=== PATIENT | female | born 1965 | race Caucasian/White ===

== ENCOUNTER 2018-01-09 08:24 | Day surgery (SDC) | payer OTHER ==
--- NOTE | 2018-01-09 07:42 | HP ---
DATE OF SURGERY: 01/09/2018 HISTORY OF PRESENT ILLNESS: The patient is a 52 year-old with some back issues, some sacroiilitis, occasional rectal pain. The patient has regular back issues. She had some mucus stools in the past. The last colonoscopy at age 31 negative according to the patient. She denies any current bloody stools. Family history negative for colon cancer. She is in need of screening colonoscopy. PAST MEDICAL HISTORY: Hypercholesterolemia and had some back problems. PAST SURGICAL HISTORY: Cholecystectomy, several back surgeries, section. She had T&A in the past. MEDICATIONS: Estradiol, bupropion, Crestor, trazodone, gabapentin. ALLERGIES: NKDA. FAMILY HISTORY: Hypertension. SOCIAL HISTORY: No smoking, rare alcohol use. REVIEW OF SYSTEMS: Twelve systems reviewed per admission assessment. No chest pain or palpitations other systems negative or noncontributory as above and per preadmission questionnaire. PHYSICAL EXAMINATION: GENERAL: No acute distress. HEENT: Sclerae nonicteric. NECK: No JVD. CHEST: Equal excursion, nonlabored breathing. CVS: Regular rate and rhythm. ABDOMEN: Soft. No peritoneal signs. EXTREMITIES: No significant edema. NEURO: Alert, moving extremities symmetrically. No gross motor deficits noted. IMPRESSION: Need for screening colonoscopy. I feel she is a candidate. She is shown the risk sheet and explained the procedure in detail but not limited to bleeding or infection, small risk of bowel injury or perforation possibly requiring open procedure, small risk of missed or nondiagnosis or incomplete exam possibly requiring barium enema, other studies or procedures. She understands and agrees to the planned procedure and will proceed with outpatient colonoscopy.
[2018-01-09] MEDS ORDERED: Versed 2 MG/2 ML Injection IV ONE (08:25)
[2018-01-09] MEDS ORDERED: DIPRIVAN 200 MG/20 ML IV ONE (08:25)
[2018-01-09] MEDS ORDERED: Lactated Ringers 1,000 ML IV ONE (09:17)
[2018-01-09] MEDS ORDERED: Lactated Ringers 1,000 ML IV SCH (09:30)
[2018-01-09 11:56] VITALS: BP 120/74; PULSE 89; O2SAT 98
--- NOTE | 2018-01-09 14:58 | OP ---
SURGERY DATE/TIME: 01/09/2018 1005 PREOPERATIVE DIAGNOSES: 1) Need for screening colonoscopy. 2) Rectal aches and pains. POSTOPERATIVE DIAGNOSES: 1) Poor prep limiting exam. 2) Small raised lesion versus hyperplastic lesion sigmoid colon and rectum. 3) Small internal and external hemorrhoids. 4) A few small diverticula. PROCEDURES: 1) Colonoscopy to cecum with hot biopsy small raised lesion sigmoid colon and rectum versus hyperplastic lesion, path pending. 2) Random cold biopsies colon to evaluate for microscopic colitis. SURGEON: Dr. Dameon Becerra. ANESTHESIA: MAC. ESTIMATED BLOOD LOSS: Minimal. INDICATIONS: As noted above. Risks and benefits explained in detail but not limited to and consent obtained. DESCRIPTION OF PROCEDURE AND FINDINGS: The patient is taken to the endoscopy room. MAC anesthesia introduced. After official time out and no disagreement with planned procedure, digital rectal exam did not reveal any rectal masses. She did have some internal and external hemorrhoids. Video colonoscope inserted and passed up through the poorly prepped colon with a lot of liquidy semi-solid and a few solid stool throughout the colon, was suction irrigated as well as possible but did limit the exam for small lesions. The scope was slowly and carefully able to be navigated across the transverse colon, ascending colon. With external pressure the scope was able to be passed to the cecum. Appendiceal orifice and valve well visualized. Again prep overall was poor limiting the exam. Suction irrigated as well as possible but did limit the exam for small lesions. The scope was slowly and carefully withdrawn. There were no signs of any large polyps, masses or obstructing lesions. As she had rectal pain and it is unclear whether it is more sacroiliac inflammation or other etiology, it was felt she warranted random cold biopsy to evaluate for microscopic colitis and cold biopsies were taken. Good hemostasis was noted. The scope was slowly and carefully withdrawn. She had a few small diverticula in the left colon otherwise had some small internal and external hemorrhoids otherwise no signs of any large polyps, masses or obstructing lesions. There were a few small 1.5 mm to 2 mm raised lesions versus hyperplastic lesions in the sigmoid colon and rectum that were removed with hot biopsy forceps with brief bursts of cautery. Good hemostasis noted. The scope is withdrawn. The patient tolerated the procedure well. There were no immediate complications. Findings discussed with the family out in the waiting room. Will see her back in the office next week.
== END 2018-01-09 11:40 | disposition home or self-care (01) ==
LOC: SDC 08:24
PROVIDERS: ATTEND Surgery
PROC: 0DBH8ZX Excision of Cecum, Via Natural or Artificial Opening Endoscopic, Diagnostic (ICD-10-PCS; principal; 2018-01-09)
PROC: 0DBN8ZX Excision of Sigmoid Colon, Via Natural or Artificial Opening Endoscopic, Diagnostic (ICD-10-PCS; 2018-01-09)
PROC: 0DBP8ZX Excision of Rectum, Via Natural or Artificial Opening Endoscopic, Diagnostic (ICD-10-PCS; 2018-01-09)
PROC: 0DBG8ZX Excision of Left Large Intestine, Via Natural or Artificial Opening Endoscopic, Diagnostic (ICD-10-PCS; 2018-01-09)
PROC: 0DBP8ZX Excision of Rectum, Via Natural or Artificial Opening Endoscopic, Diagnostic (ICD-10-PCS; 2018-01-09)
PROC: 0DBF8ZX Excision of Right Large Intestine, Via Natural or Artificial Opening Endoscopic, Diagnostic (ICD-10-PCS; 2018-01-09)
DX: Z12.11 Encounter for screening for malignant neoplasm of colon (principal); K62.89 Other specified diseases of anus and rectum; K63.9 Disease of intestine, unspecified; K64.4 Residual hemorrhoidal skin tags; K64.8 Other hemorrhoids; K57.90 Diverticulosis of intestine, part unspecified, without perforation or abscess without bleeding; Z80.0 Family history of malignant neoplasm of digestive organs; E78.00 Pure hypercholesterolemia, unspecified
CPT/HCPCS: 00812; 88305; J2250; J2704

== ENCOUNTER 2018-11-15 10:58 | Day surgery (SDC) | payer OTHER ==
[2018-11-15] MEDS ORDERED: Marcaine 0.5% SDV 10 ML IJ ONE (10:59)
[2018-11-15] MEDS ORDERED: DIPRIVAN 200 MG/20 ML IV ONE (10:59)
--- NOTE | 2018-11-15 13:36 | XRAY ---
9 seconds fluoroscopy time in surgery for ganglion block sacrum.
--- NOTE | 2018-11-15 13:47 | XRAY ---
Indication: Sacral ganglion block. Intraoperative fluoroscopy was provided for 9 seconds. Single digital spot image submitted for interpretation demonstrates a posterior needle tip at the level of the coccyx. Small amount of contrast injected for needle tip placement. Correlate with intraoperative findings/report.
[2018-11-15] MEDS ORDERED: Lactated Ringers 1,000 ML IV ONE (14:52)
== END 2018-11-15 13:00 | disposition home or self-care (01) ==
LOC: SDC-PAIN 10:58
PROVIDERS: ATTEND Psychiatry & Neurology Pain Medicine
DX: R10.2 Pelvic and perineal pain (principal); M53.3 Sacrococcygeal disorders, not elsewhere classified
CPT/HCPCS: 64520; 72020; 77002; J2704; Q9966

== ENCOUNTER 2019-02-14 11:04 | Day surgery (SDC) | payer OTHER ==
[2019-02-14] MEDS ORDERED: LIDOCAINE HCL 2% 100 MG/5 ML IJ ONE (11:05)
[2019-02-14] MEDS ORDERED: Marcaine 0.5% SDV 10 ML IJ ONE (11:05)
[2019-02-14] MEDS ORDERED: Ketamine HCl 50 MG/ML IJ ONE (11:05)
[2019-02-14] MEDS ORDERED: DIPRIVAN 200 MG/20 ML IV ONE (11:05)
[2019-02-14] MEDS ORDERED: Pepcid 20 MG VIAL IV SCH (12:15)
[2019-02-14] MEDS ORDERED: MORPHINE SULFATE 10 MG/ML ONE (12:58)
[2019-02-14] MEDS ORDERED: MORPHINE SULFATE 10 MG/ML IV ONE (14:00)
[2019-02-14] MEDS ORDERED: Lactated Ringers 1,000 ML IV ONE (14:25)
--- NOTE | 2019-02-14 16:17 | XRAY ---
14 seconds of fluoroscopy was used in surgery for ganglion impar.
--- NOTE | 2019-02-14 16:24 | XRAY ---
Indication: Ganglion IMPAR5. Intraoperative fluoroscopy was provided for 14 seconds. Single digital spot image submitted for interpretation demonstrates posterior needle tip projecting just anterior to the sacrococcygeal junction. Small amount of contrast injected for needle tip placement. Correlate with intraoperative findings/report.
== END 2019-02-14 13:12 | disposition home or self-care (01) ==
LOC: SDC-PAIN 11:04
PROVIDERS: ATTEND Psychiatry & Neurology Pain Medicine
DX: M53.3 Sacrococcygeal disorders, not elsewhere classified (principal); Z79.899 Other long term (current) drug therapy
CPT/HCPCS: 64999; 72220; 77002; J2270; J2704; Q9966

== ENCOUNTER 2019-06-27 09:54 | Day surgery (SDC) | payer OTHER ==
[2019-06-27] MEDS ORDERED: Marcaine 0.5% SDV 10 ML IJ ONE (09:55)
[2019-06-27] MEDS ORDERED: DIPRIVAN 200 MG/20 ML IV ONE (11:11)
[2019-06-27] MEDS ORDERED: Ketamine HCl 50 MG/ML ONE (11:11)
[2019-06-27] MEDS ORDERED: Lactated Ringers 1,000 ML IV ONE (11:16)
--- NOTE | 2019-06-27 15:17 | XRAY ---
15 seconds fluoroscopy time in surgery for ganglion impar nerve block.
--- NOTE | 2019-06-29 10:18 | XRAY ---
Indication: Sacral ganglion nerve block. Intraoperative fluoroscopy was provided for 15 seconds. Single digital spot image submitted for interpretation demonstrates posterior needle tip at the level of the coccyx. Small amount of contrast injected for needle tip placement. Correlate with intraoperative findings/report.
== END 2019-06-27 11:45 | disposition home or self-care (01) ==
LOC: SDC-PAIN 09:54
PROVIDERS: ATTEND Psychiatry & Neurology Pain Medicine
DX: M53.3 Sacrococcygeal disorders, not elsewhere classified (principal); F41.8 Other specified anxiety disorders; Z79.899 Other long term (current) drug therapy
CPT/HCPCS: 64999; 72020; 77002; J2704; Q9966

== ENCOUNTER 2021-05-06 13:19 | Day surgery (SDC) | payer BC ==
[2021-05-06] MEDS ORDERED: BUPIVACAINE 0.5% VIAL IJ ONE (13:20)
[2021-05-06] MEDS ORDERED: Xylocaine 1% Vial 30 ML PF IJ ONE (13:20)
[2021-05-06] MEDS ORDERED: DIPRIVAN 200 MG/20 ML IV ONE (15:10)
[2021-05-06] MEDS ORDERED: Lactated Ringers 1,000 ML IV ONE (15:42)
--- NOTE | 2021-05-06 17:00 | XRAY ---
Indication: Ganglion impar. Intraoperative fluoroscopy provided for 16 seconds. Single lateral digital spot image submitted for interpretation demonstrates posterior needle tip projecting just anterior to coccyx. Small amount of contrast injected for needle tip placement. Correlate with intraoperative findings/report.
--- NOTE | 2021-05-06 17:02 | XRAY ---
16 seconds fluoroscopy time in surgery for ganglion impar.
== END 2021-05-06 15:33 | disposition home or self-care (01) ==
LOC: SDC-PAIN 13:19
PROVIDERS: ATTEND Psychiatry & Neurology Pain Medicine
DX: M54.16 Radiculopathy, lumbar region (principal); F41.9 Anxiety disorder, unspecified; F32.9 Major depressive disorder, single episode, unspecified; M19.90 Unspecified osteoarthritis, unspecified site; Z79.899 Other long term (current) drug therapy
CPT/HCPCS: 64520; 72020; 77002; 77003; J2001; J2704; Q9966

== ENCOUNTER 2021-08-12 06:42 | Day surgery (SDC) | payer BC ==
[2021-08-12] MEDS ORDERED: Depo-Medrol 40 MG/ML IM ONE (06:43)
[2021-08-12] MEDS ORDERED: Sodium Chloride 0.9(Preservative Free) 10 ML IJ ONE (06:43)
[2021-08-12] MEDS ORDERED: DIPRIVAN 200 MG/20 ML IV ONE (08:51)
[2021-08-12] MEDS ORDERED: Lactated Ringers 1,000 ML IV ONE (09:01)
--- NOTE | 2021-08-12 12:08 | XRAY ---
Indication: Left L3-L5 transforaminal TELLY. Intraoperative fluoroscopy provided for 54 seconds. 2 digital spot images submitted for interpretation demonstrates posterior needle tips projecting over the expected left L4 and L5 nerve roots. Small amount of contrast injected for needle tip placement. Correlate with intraoperative findings/report. Incidental incompletely visualized bilateral L5-S1 fusion hardware.
--- NOTE | 2021-08-12 12:43 | XRAY ---
54 seconds fluoroscopy time in surgery for L3-L5 TELLY.
== END 2021-08-12 09:25 | disposition home or self-care (01) ==
LOC: SDC-PAIN 06:42
PROVIDERS: ATTEND Psychiatry & Neurology Pain Medicine
DX: M54.16 Radiculopathy, lumbar region (principal); Z79.899 Other long term (current) drug therapy
CPT/HCPCS: 64483; 64484; 72100; 77003; J1030; J2704; Q9966

== ENCOUNTER 2021-11-10 05:58 | Day surgery (SDC) | payer BC ==
[2021-11-10] MEDS ORDERED: Lactated Ringers 1,000 ML IV SCH (06:30)
[2021-11-10] MEDS ORDERED: DIPRIVAN 200 MG/20 ML IV ONE ×2 (07:52→08:08)
[2021-11-10] MEDS ORDERED: Versed 2 MG/2 ML Injection ONE (07:53)
[2021-11-10 08:56] VITALS: O2SAT 96
--- NOTE | 2021-11-10 09:52 | OP ---
SURGERY DATE/TIME: 11/10/2021 0758 PREOPERATIVE DIAGNOSES: 1) Epigastric pain. 2) History of colon polyps. POSTOPERATIVE DIAGNOSES: 1) NSAID-type gastritis. 2) Normal colon. PROCEDURES: 1) Esophagogastroduodenoscopy with cold forceps biopsy to gastric antrum. 2) Colonoscopy. SURGEON: Dr. Quiroz. ANESTHESIA: Medications were given by the anesthesia department. HISTORY: The patient is a 56 year old white female presenting now for endoscopic evaluation. The patient is apparently taking aspirin on a regular basis. She is taking both omeprazole and pantoprazole, according to her medical record. The patient was discussed the potential risks of the procedure including the risk of perforation, phlebitis, untoward reaction to medication, vocal cord injury, sore throat and missed lesions. The patient verbalized her understanding and desired to have the procedure performed. DESCRIPTION OF PROCEDURE: The patient was given the medications by the anesthesia department. She had continuous pulse oximetry, ECG monitoring, intermittent blood pressure monitoring during the examination. She is placed in the left lateral decubitus position. A bite block is placed and the flexible Olympus gastroscope was used to intubate the oropharynx. A view of the larynx was obtained and was normal. The scope was easily introduced in the esophagus which had some apparent reflux of mucousy material up into the esophagus which is evaluated to be essentially otherwise normal to esophagogastric junction. The stomach was entered where normal gastric rugal folds were seen and these distended nicely with insufflation of air revealing reddened patchy areas throughout the stomach, body and antrum. The pylorus is encountered and intubated. The duodenum inspected and found to be essentially normal. The scope is withdrawn towards the stomach. A retroflex view obtained of the lesser curvature, fundus and cardia regions of the stomach and these appeared to be normal. The scope was then redirected to the gastric antrum where biopsies were obtained to rule out the presence of chemical-type gastritis secondary to NSAID's. The scope was then removed from the patient. Next, a digital rectal examination was performed and revealed normal anal sphincter tone and no masses. The flexible Olympus pediatric colonoscope was used to intubate the rectum. A view of the colon was developed sequentially with some mild to moderate difficulty. There was also noted to be a fair amount of stool residual in the sigmoid colon. We suctioned this as much as we could. Upon insertion and withdrawal, including a retroflex view in the rectum, no mucosal lesions were encountered. The scope was removed from the patient who tolerated the procedure well and was sent back to OP recovery in good condition. The prep was noted to be fair.
[2021-11-10 10:08] VITALS: BP 100/59; PULSE 89
== END 2021-11-10 09:30 | disposition home or self-care (01) ==
LOC: SDC 05:58
PROVIDERS: ATTEND Family Medicine
DX: K29.60 Other gastritis without bleeding (principal); Z86.010 Personal history of colon polyps; Z79.1 Long term (current) use of non-steroidal anti-inflammatories (NSAID)
CPT/HCPCS: J2250; J2704

== ENCOUNTER 2021-12-15 07:49 | Emergency (ER) | payer BC ==
[2021-12-15 08:14] LABS: Absolute Neutrophil Ct (ANC) 5.32 (1.4-6.9); Basophil (Absolute #) 0.05 (0-0.4); Eosinophil % 6.3 % (0.00-5.0); Eosinophil (Absolute #) 0.64 (0-0.5); Hematocrit 43.1 % (35-47); Hemoglobin 14.9 gm/dl (12.0-16.0); Lymphocyte (Absolute #) 3.65 (1.0-4.6); Lymphocytes % 35.6 % (24.0-44.0); Mean Cell Volume 88.1 fl (78-100); Mean Corpuscular Hemoglobin 30.5 pg (26-32); Mean Corpuscular Hgb Concent. 34.6 g/dl (32-36); Monocyte (Absolute #) 0.58 (0.0-1.3); Monocytes % 5.7 % (0.0-12.0); Neutrophil % 51.9 % (36.0-66.0); Platelet Count 273 K/mm3 (150-450); Red Blood Count 4.89 M/mm3 (4.1-5.4); Red Cell Distribution Width 12.6 % (11.5-14.0); White Blood Count 10.2 K/mm3 (4.0-10.5)
[2021-12-15 08:30] LABS: ALBUMIN 4.8 g/dL (3.5-5.0); ALKALINE PHOSPHATASE 112 U/L (38-126); BLOOD UREA NITROGEN 14 mg/dL (7-17); CHLORIDE 99 mmol/L (98-107); Calcium 9.7 mg/dL (8.4-10.2); Carbon Dioxide 25 mmol/L (22-30); Creatinine 1 0.72 mg/dL (0.52-1.04); EST GLOMERULAR FILTRATION RATE > 60.0 ML/MIN; ETHYL ALCOHOL < 10 mg/dL (0-10); Glucose 137 mg/dL (74-106); Potassium 3.3 mmol/L (3.5-5.1); SGOT/AST 29 U/L (14-36); SGPT/ALT 20 U/L (0-35); SODIUM 141 mmol/L (137-145)
--- NOTE | 2021-12-15 08:39 | XRAY ---
Indication: Numbness both hands. Stroke. Multiple contiguous axial images obtained through the head without contrast. Comparison: None Normal appearing brain parenchyma, ventricles, and bony calvarium for patient's age. Visualized paranasal sinuses and mastoid air cells are clear. Impression: Normal CT head without contrast exam. Follow-up CT or MRI may yield further information if there remains clinical concern.
--- NOTE | 2021-12-15 08:53 | ERPHSYRPT ---
- History of Present Illness Source: patient Exam Limitations: other Patient Subjective Stated Complaint: bilateral hand tingling, lightheadedness. 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 Patient A & Ox3, but somewhat slow to respond to questions. VSS, repirations non labored. Patient appear somewhat anxious/ nervous. C/o bilateral hand tingling. Very slight contractures noted to bilateral hands upon arrival, resolved within 10 minutes. Still c/o tingling. Denies any pain. PERRLA noted. Denies vision changes. Pupils 3mm. No speech disturbance noted. See neuro assessment tab/ NIHSS tab for more info. Skin PWD. Follows all commands appropriately. C/o slight nausea. Physician History: 56 yo wf who is a very poor historian states that she woke up at 3:30 "not fe eling well". She states that she had mild abdominal pain which resolved. Her hands then became "numb. She had a little nausea but denies vomiting/focal weakness/chest pain/dyspnea/headache/fever/cough /coryza/melena/hematochezia/dysuria/hematuria. Pt alert-oriented x3 and without focal weakness upon presentation. Timing/Duration: other (3:30) Character of Deficits: altered sensation Baseline/Normal Cognition: alert oriented x 3 Current Cognition: alert oriented x 3 Baseline Gait: walks w/o assistance Associated Symptoms: confusion, nausea, numbness/tingling in legs/feet, paresthesia, No fatigue, No fever, No chills, No loss of consciousness, No vomiting, No weakness, No insomnia, No muscle spasms, No ringing in ears, No seizures, No slurred speech, No trouble walking, No vision changes, No chest pain, No headache Allergies/Adverse Reactions: No Known Drug Allergies Allergy (Verified 12/15/21 08:15) Home Medications: Rosuvastatin Calcium [Crestor] 1 tab PO QHS 01/03/18 [History] Trazodone HCl 1 tab PO HSPRN PRN 01/03/18 [History] Cyclobenzaprine HCl 10 mg [Cyclobenzaprine 10 MG] 10 mg PO TID PRN 11/09/21 [History] Hyoscyamine Sulfate 0.125 mg [Anaspaz 0.125 mg] 1 tab PO QID 11/09/21 [History] Levothyroxine Sodium 25 Mcg [Synthroid 25 Mcg] 1 tab PO DAILY 11/09/21 [History] Metoprolol Tartrate 1 tab PO BID 11/09/21 [History] Pantoprazole 20 mg [Protonix 20MG Tablet] 1 tab PO DAILY 11/09/21 [History] hydroCHLOROthiazide [Hydrochlorothiazide] 25 mg PO DAILY 11/09/21 [History] Melatonin/Pyridoxine [Melatonin 5 mg Tablet] 1 each PO HS 11/10/21 [History] Hx Tetanus, Diphtheria Vaccination/Date Given: Yes Hx Influenza Vaccination/Date Given: Yes Travel Risk - International Travel Have you traveled outside of the country in past 3 weeks: No - Coronavirus Screening Are you exhibiting any of the following symptoms?: No Close contact with a COVID-19 positive Pt in past 14-21 Days: No - Vaccine Status Have you recieved a Covid-19 vaccination: No - Review of Systems Constitutional: No Symptoms Eyes: No Symptoms Ears, Nose, & Throat: No Symptoms Respiratory: No Symptoms Cardiac: No Symptoms Abdominal/Gastrointestinal: No Symptoms, Abdominal Pain Genitourinary Symptoms: No Symptoms Musculoskeletal: No Symptoms Skin: No Symptoms Neurological: No Symptoms, Parasthesia, Sensory Changes Psychological: No Symptoms Endocrine: No Symptoms Hematologic/Lymphatic: No Symptoms Immunological/Allergic: No Symptoms - Past Medical History Pertinent Past Medical History: Yes Neurological History: No Pertinent History, Migraines ENT History: No Pertinent History Cardiac History: High Cholesterol, Hypertension Respiratory History: Other Endocrine Medical History: Hypothyroidism Musculoskeletal History: Osteoarthritis GI Medical History: GERD History: No Pertinent History Psycho-Social History: Depression Female Reproductive Disorders: No Pertinent History Other Medical History: Former smoker. quit in 1997. Neck spine and joint problems, - Past Surgical History Past Surgical History: Yes Neuro Surgical History: No Pertinent History Cardiac: Cardiac Catheterization Respiratory: No Pertinent History Gastrointestinal: Cholecystectomy Genitourinary: No Pertinent History Musculoskeletal: Orthopedic Surgery Female Surgical History: No Pertinent History Other Surgical History: Back surgeries x 3. - Social History Smoking Status: Former smoker Exposure to second hand smoke: No Drug Use: none Patient Lives Alone: No Significant Family History: no pertinent family hx - Female History Hx Now: No - Nursing Vital Signs Nursing Vital Signs: Initial Vital Signs Temperature 97.2 F 12/15/21 08:05 Pulse Rate 104 H 12/15/21 08:05 Respiratory Rate 18 12/15/21 08:05 Blood Pressure 163/97 12/15/21 08:05 O2 Sat by Pulse Oximetry 97 12/15/21 08:05 Pain Scale Pain Intensity 0 Hypertensive - Jackson Coma Scale Best Eye Response (Erika): (4) open spontaneously Best Verbal Response (Erika): (5) oriented Best Motor Response (Jackson): (6) obeys commands Jackson Total: 15 - Physical Exam General Appearance: no apparent distress Eye Exam: bilateral eye: normal inspection, PERRL, EOMI Ears, Nose, Throat Exam: normal ENT inspection, TMs normal, pharynx normal, moist mucous membranes Neck Exam: normal inspection, non-tender, supple, full range of motion, No meningismus, No mass, No Brudzinski, No Kernig's, No carotid bruit Respiratory: normal breath sounds, lungs clear, airway intact Cardiovascular: regular rate/rhythm, normal heart sounds, normal peripheral pulses, No murmur Gastrointestinal: soft, normal bowel sounds, No tenderness Back Exam: normal inspection, normal range of motion Extremity Exam: normal inspection, normal range of motion Peripheral Pulses: carotid (R): 2+, carotid (L): 2+ Mental Status: alert, oriented x 3, 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 Exam: normal hearing, normal speech, PERRL, No abnormal eye position, No abnormal gag reflex Motor/Sensory: no motor deficit, no sensory deficit, no pronator drift, negative Babinski's sign DTR: bicep (R): 2+, bicep (L): 2+ Skin Exam: normal color, warm, dry, No rash SpO2 Interpretation: normal SpO2: 97 O2 Delivery: Room Air - Course EKG Interpreted by Me: RATE (NSR/R99/Prolonged QTc/Low voltage/No acute ST segme nt changes) - CT Exams Head CT Interpretation: Discussed w/radiologist (Nothing acute per Rad) Ordered Tests: Active Orders 24 hr Category Date Time Status EKG-ER Only STAT Care 12/15/21 08:09 Completed IV Insertion STAT Care 12/15/21 08:09 Completed HEAD WITHOUT CONTRAST [CT] Stat Exams 12/15/21 07:52 Completed MRI BRAIN W/O CONTRAST [MRI] Stat Exams 12/15/21 09:07 Completed CBC W DIFF Stat Lab 12/15/21 07:50 Completed CMP Stat Lab 12/15/21 07:50 Completed ETHYL ALCOHOL Stat Lab 12/15/21 07:50 Completed T4 (Thyroxine) Stat Lab 12/15/21 07:50 Completed TROPONIN Q3H Lab 12/15/21 07:50 Completed TROPONIN Q3H Lab 12/15/21 11:12 Completed TSH, 3RD Generation Stat Lab 12/15/21 07:50 Completed UA W/RFX UR CULTURE Stat Lab 12/15/21 09:06 Completed Urine Triage Profile Stat Lab 12/15/21 09:06 Completed Lab/Rad Data: Laboratory Result Diagrams 12/15/21 07:50 12/15/21 07:50 Laboratory Results 12/15/21 12/15/21 12/15/21 Range/Units 11:12 09:06 09:06 WBC (4.0-10.5) K/mm3 RBC (4.1-5.4) M/mm3 Hgb (12.0-16.0) gm/dl Hct (35-47) % MCV (78-100) fl MCH (26-32) pg MCHC (32-36) g/dl RDW (11.5-14.0) % Plt Count (150-450) K/mm3 MPV (7.5-11.0) fl Gran % (36.0-66.0) % Eos # (Auto) (0-0.5) Absolute Lymphs (auto) (1.0-4.6) Absolute Monos (auto) (0.0-1.3) Lymphocytes % (24.0-44.0) % Monocytes % (0.0-12.0) % Eosinophils % (0.00-5.0) % Basophils % (0.0-0.4) % Absolute Granulocytes (1.4-6.9) Basophils # (0-0.4) Sodium (137-145) mmol/L Potassium (3.5-5.1) mmol/L Chloride (98-107) mmol/L Carbon Dioxide (22-30) mmol/L Anion Gap (5-15) MEQ/L BUN (7-17) mg/dL Creatinine (0.52-1.04) mg/dL Estimated GFR ML/MIN Glucose (74-106) mg/dL Calcium (8.4-10.2) mg/dL Total Bilirubin (0.2-1.3) mg/dL AST (14-36) U/L ALT (0-35) U/L Alkaline Phosphatase (38-126) U/L Ammonia (9-30) umol/L Troponin I < 0.012 (0.000-0.034) ng/mL Serum Total Protein (6.3-8.2) g/dL Albumin (3.5-5.0) g/dL Thyroxine (T4) (5.53-10.96) ug/dL TSH 3rd Generation (0.47-4.68) mIU/L Urine Color YELLOW (YELLOW) Urine Appearance SLIGHTLY CLOUDY (CLEAR) Urine pH 7.0 (5-6) Ur Specific Casper 1.015 (1.005-1.025) Urine Protein NEGATIVE (Negative) Urine Ketones NEGATIVE (NEGATIVE) Urine Blood NEGATIVE (0-5) Neil/ul Urine Nitrite NEGATIVE (NEGATIVE) Urine Bilirubin NEGATIVE (NEGATIVE) Urine Urobilinogen NEGATIVE (0-1) mg/dL Ur Leukocyte Esterase NEGATIVE (NEGATIVE) Urine WBC (Auto) 0-2 (0-5) /HPF Urine RBC (Auto) 0-2 (0-2) /HPF U Hyaline Cast (Auto) 6-10 (0-2) /LPF U Epithel Cells (Auto) RARE (FEW) /HPF Urine Bacteria (Auto) MANY (NEGATIVE) /HPF Urine Mucus (Auto) SLIGHT (NEGATIVE) /HPF Urine Culture Reflexed NO (NO) Urine Glucose NEGATIVE (NEGATIVE) mg/dL Urine Opiates Level NEGATIVE (NEGATIVE) Ur Methadone NEGATIVE (NEGATIVE) Urine Barbiturates NEGATIVE (NEGATIVE) Ur Phencyclidine (PCP) NEGATIVE (NEGATIVE) Urine Amphetamine NEGATIVE (NEGATIVE) U Benzodiazepine Level NEGATIVE (NEGATIVE) Urine Cocaine NEGATIVE (NEGATIVE) Urine Marijuana (THC) NEGATIVE (NEGATIVE) Ethyl Alcohol (0-10) mg/dL 12/15/21 12/15/21 12/15/21 Range/Units 08:00 07:50 07:50 WBC (4.0-10.5) K/mm3 RBC (4.1-5.4) M/mm3 Hgb (12.0-16.0) gm/dl Hct (35-47) % MCV (78-100) fl MCH (26-32) pg MCHC (32-36) g/dl RDW (11.5-14.0) % Plt Count (150-450) K/mm3 MPV (7.5-11.0) fl Gran % (36.0-66.0) % Eos # (Auto) (0-0.5) Absolute Lymphs (auto) (1.0-4.6) Absolute Monos (auto) (0.0-1.3) Lymphocytes % (24.0-44.0) % Monocytes % (0.0-12.0) % Eosinophils % (0.00-5.0) % Basophils % (0.0-0.4) % Absolute Granulocytes (1.4-6.9) Basophils # (0-0.4) Sodium (137-145) mmol/L Potassium (3.5-5.1) mmol/L Chloride (98-107) mmol/L Carbon Dioxide (22-30) mmol/L Anion Gap (5-15) MEQ/L BUN (7-17) mg/dL Creatinine (0.52-1.04) mg/dL Estimated GFR ML/MIN Glucose (74-106) mg/dL Calcium (8.4-10.2) mg/dL Total Bilirubin (0.2-1.3) mg/dL AST (14-36) U/L ALT (0-35) U/L Alkaline Phosphatase (38-126) U/L Ammonia 12 (9-30) umol/L Troponin I < 0.012 (0.000-0.034) ng/mL Serum Total Protein (6.3-8.2) g/dL Albumin (3.5-5.0) g/dL Thyroxine (T4) 8.08 (5.53-10.96) ug/dL TSH 3rd Generation 2.160 (0.47-4.68) mIU/L Urine Color (YELLOW) Urine Appearance (CLEAR) Urine pH (5-6) Ur Specific Casper (1.005-1.025) Urine Protein (Negative) Urine Ketones (NEGATIVE) Urine Blood (0-5) Neil/ul Urine Nitrite (NEGATIVE) Urine Bilirubin (NEGATIVE) Urine Urobilinogen (0-1) mg/dL Ur Leukocyte Esterase (NEGATIVE) Urine WBC (Auto) (0-5) /HPF Urine RBC (Auto) (0-2) /HPF U Hyaline Cast (Auto) (0-2) /LPF U Epithel Cells (Auto) (FEW) /HPF Urine Bacteria (Auto) (NEGATIVE) /HPF Urine Mucus (Auto) (NEGATIVE) /HPF Urine Culture Reflexed (NO) Urine Glucose (NEGATIVE) mg/dL Urine Opiates Level (NEGATIVE) Ur Methadone (NEGATIVE) Urine Barbiturates (NEGATIVE) Ur Phencyclidine (PCP) (NEGATIVE) Urine Amphetamine (NEGATIVE) U Benzodiazepine Level (NEGATIVE) Urine Cocaine (NEGATIVE) Urine Marijuana (THC) (NEGATIVE) Ethyl Alcohol (0-10) mg/dL 12/15/21 12/15/21 Range/Units 07:50 07:50 WBC 10.2 (4.0-10.5) K/mm3 RBC 4.89 (4.1-5.4) M/mm3 Hgb 14.9 (12.0-16.0) gm/dl Hct 43.1 (35-47) % MCV 88.1 (78-100) fl MCH 30.5 (26-32) pg MCHC 34.6 (32-36) g/dl RDW 12.6 (11.5-14.0) % Plt Count 273 (150-450) K/mm3 MPV 11.0 (7.5-11.0) fl Gran % 51.9 (36.0-66.0) % Eos # (Auto) 0.64 H (0-0.5) Absolute Lymphs (auto) 3.65 (1.0-4.6) Absolute Monos (auto) 0.58 (0.0-1.3) Lymphocytes % 35.6 (24.0-44.0) % Monocytes % 5.7 (0.0-12.0) % Eosinophils % 6.3 H (0.00-5.0) % Basophils % 0.5 (0.0-0.4) % Absolute Granulocytes 5.32 (1.4-6.9) Basophils # 0.05 (0-0.4) Sodium 141 (137-145) mmol/L Potassium 3.3 L (3.5-5.1) mmol/L Chloride 99 (98-107) mmol/L Carbon Dioxide 25 (22-30) mmol/L Anion Gap 20.0 H (5-15) MEQ/L BUN 14 (7-17) mg/dL Creatinine 0.72 (0.52-1.04) mg/dL Estimated GFR > 60.0 ML/MIN Glucose 137 H (74-106) mg/dL Calcium 9.7 (8.4-10.2) mg/dL Total Bilirubin 0.50 (0.2-1.3) mg/dL AST 29 (14-36) U/L ALT 20 (0-35) U/L Alkaline Phosphatase 112 (38-126) U/L Ammonia (9-30) umol/L Troponin I (0.000-0.034) ng/mL Serum Total Protein 7.0 (6.3-8.2) g/dL Albumin 4.8 (3.5-5.0) g/dL Thyroxine (T4) (5.53-10.96) ug/dL TSH 3rd Generation (0.47-4.68) mIU/L Urine Color (YELLOW) Urine Appearance (CLEAR) Urine pH (5-6) Ur Specific Casper (1.005-1.025) Urine Protein (Negative) Urine Ketones (NEGATIVE) Urine Blood (0-5) Neil/ul Urine Nitrite (NEGATIVE) Urine Bilirubin (NEGATIVE) Urine Urobilinogen (0-1) mg/dL Ur Leukocyte Esterase (NEGATIVE) Urine WBC (Auto) (0-5) /HPF Urine RBC (Auto) (0-2) /HPF U Hyaline Cast (Auto) (0-2) /LPF U Epithel Cells (Auto) (FEW) /HPF Urine Bacteria (Auto) (NEGATIVE) /HPF Urine Mucus (Auto) (NEGATIVE) /HPF Urine Culture Reflexed (NO) Urine Glucose (NEGATIVE) mg/dL Urine Opiates Level (NEGATIVE) Ur Methadone (NEGATIVE) Urine Barbiturates (NEGATIVE) Ur Phencyclidine (PCP) (NEGATIVE) Urine Amphetamine (NEGATIVE) U Benzodiazepine Level (NEGATIVE) Urine Cocaine (NEGATIVE) Urine Marijuana (THC) (NEGATIVE) Ethyl Alcohol < 10 (0-10) mg/dL - Progress Progress: improved Progress Note: 12/15/21 10:25 MRI brain-nothing acute 12/15/21 11:43 Pt wo focal weakness/chest pain/dyspnea during stay 12/15/21 20:36 Pt's symptoms most likely due to medications and/or anxiety. Pt refused Teleneuro consult during stay. She would rather f/u w PCP and [facility]. Counseled pt/family regarding: lab results, diagnosis, need for follow-up, rad results - Departure Departure Disposition: Home Clinical Impression: Paresthesia of both hands Condition: Stable Critical Care Time: No Referrals: DAQUAN PINEDO MD [Primary Care Provider] - Follow up/PCP as directed Instructions: Paresthesias (DC) Additional Instructions: Follow up with your family MD Return to ER for focal weakness/Headache/Chest pain/Temperature greater than 100.5
[2021-12-15 09:36] LABS: Appearance SLIGHTLY CLOUDY (CLEAR); Bacteria MANY /HPF (NEGATIVE); Bilirubin NEGATIVE (NEGATIVE); Blood NEGATIVE Ery/ul (0-5); Epithelial Cells RARE /HPF (FEW); Glucose NEGATIVE (NEGATIVE); Ketones NEGATIVE (NEGATIVE); Leukocyte Esterase NEGATIVE (NEGATIVE); Mucus SLIGHT /HPF (NEGATIVE); Nitrite NEGATIVE (NEGATIVE); Protein,Urine Dip NEGATIVE (Negative); Specific Gravity 1.015 (1.005-1.025); Urobilinogen NEGATIVE mg/dL (0-1); WBC 0-2 /HPF (0-5)
[2021-12-15 09:38] LABS: RBC 0-2 /HPF (0-2)
[2021-12-15 09:46] LABS: Amphetamine,Urine NEGATIVE (NEGATIVE); Barbiturate,Urine NEGATIVE (NEGATIVE); Benzodiazepine,Urine NEGATIVE (NEGATIVE); Cocaine,Urine NEGATIVE (NEGATIVE); Methadone,Urine NEGATIVE (NEGATIVE); Opiate,Urine NEGATIVE (NEGATIVE); PCP,Urine NEGATIVE (NEGATIVE); THC,Urine NEGATIVE (NEGATIVE)
--- NOTE | 2021-12-15 10:16 | XRAY ---
Indication: Mental status change. Sagittal, coronal, and axial MRI brain performed without contrast using T1, T2, FLAIR, and ADC sequences. Comparison: None Ventriculosulcal pattern appears symmetric. Age-appropriate global atrophy. A few periventricular degenerative micro-ischemia signal bilaterally. No acute intracranial hemorrhage, abnormal extra-axial fluid collection, or mass effect. Diffusion images are negative for restricted signal. Fourth ventricle is midline without hydrocephalus. 7/8 cranial nerve complex bilaterally symmetric. Normal flow void signal within the major intracerebral circulation. Normal appearing craniocervical junction and sella turcica. Paranasal sinuses are clear. Impression: Atrophy and degenerative micro-ischemia within normal limits for patient's age. Remaining MRI brain without contrast exam is negative.
[2021-12-15 11:06] LABS: T4 (Thyroxine) 8.08 ug/dL (5.53-10.96); TSH, 3RD Generation 2.16 mIU/L (0.47-4.68)
[2021-12-15 11:51] VITALS: BP 163/97; PULSE 106
[2021-12-15 20:38] VITALS: O2SAT 97
== END 2021-12-15 11:51 | disposition home or self-care (01) ==
LOC: ED 07:49
DX: R20.2 Paresthesia of skin (principal); R11.0 Nausea; R41.0 Disorientation, unspecified; E78.5 Hyperlipidemia, unspecified; I10 Essential (primary) hypertension
CPT/HCPCS: 36000; 36415; 70450; 70551; 80053; 80307; 81001; 82140; 84436; 84443; 84484; 85025; 93005; 99284; G0480

== ENCOUNTER 2022-06-09 13:48 | Day surgery (SDC) | payer BC ==
[2022-06-09] MEDS ORDERED: Sodium Chloride 0.9(Preservative Free) 10 ML IJ ONE (13:49)
[2022-06-09] MEDS ORDERED: Depo-Medrol 40 MG/ML IM ONE (13:49)
[2022-06-09] MEDS ORDERED: DIPRIVAN 200 MG/20 ML IV ONE (15:51)
[2022-06-09] MEDS ORDERED: Lactated Ringers 1,000 ML IV ONE (16:29)
--- NOTE | 2022-06-09 16:43 | XRAY ---
Indication: Left L4-S1 transforaminal TELLY. Intraoperative fluoroscopy provided for 23 seconds. 3 digital spot image submitted for interpretation demonstrates posterior needle tips projecting over the expected left L4 and L5 nerve roots. Small amount of contrast injected for needle tip placement. Correlate with intraoperative findings/report. Incidental bilateral L5-S1 fusion hardware.
--- NOTE | 2022-06-09 17:13 | XRAY ---
23 seconds of fluoroscopy was used in surgery for a left L4-S1 transforaminal TELLY.
== END 2022-06-09 16:15 | disposition home or self-care (01) ==
LOC: SDC-PAIN 13:48
PROVIDERS: ATTEND Psychiatry & Neurology Pain Medicine
DX: M54.16 Radiculopathy, lumbar region (principal); Z79.899 Other long term (current) drug therapy
CPT/HCPCS: 64483; 64484; 72100; 77003; J1030; J2704; Q9966

== ENCOUNTER 2023-04-11 08:53 | Day surgery (SDC) | payer BC ==
--- NOTE | 2023-04-11 09:03 | HP ---
DATE OF SURGERY: 04/11/2023 HISTORY OF PRESENT ILLNESS: The patient is a 58-year-old with history of polyps. No bloody stools. No change in bowel movement. Family history negative for colon cancer. The patient is in need of follow up screening colonoscopy. PAST MEDICAL HISTORY: Depression, urinary tract infections, rhinitis, hypertension, gastroesophageal reflux disease, osteoarthritis. PAST SURGICAL HISTORY: T&A. Cholecystectomy. Cardiac catheterization. section. Back surgery x3. MEDICATIONS: Wellbutrin, Singulair, hydrochlorothiazide, Zyrtec. ALLERGIES: NKDA. FAMILY HISTORY: Negative for colon cancer. SOCIAL HISTORY: Former smoker. No alcohol abuse. REVIEW OF SYSTEMS: Fourteen systems reviewed. No chest pain or palpitations. Other systems negative or noncontributory as above and per preadmission questionnaire. PHYSICAL EXAMINATION: Height 5'3". BMI 23. GENERAL: No acute distress. HEENT: Sclerae nonicteric. EOMI. Oropharynx mucous membranes moist. NECK: No JVD. CHEST: Equal excursion, nonlabored breathing. CVS: Regular rate and rhythm. ABDOMEN: Soft. No peritoneal signs. EXTREMITIES: No significant edema. NEURO: Alert, oriented, moving extremities symmetrically. RECTAL: Deferred timed to endoscopy exam. PSYCH: Appropriate mood and affect. SKIN: Dry. IMPRESSION: History of polyps, needs follow up screening colonoscopy. She was shown the risk sheet explained the procedure in detail including but not limited to risk of bleeding or infection, risk of bowel injury or perforation, risk of missed or nondiagnosis or incomplete exam possibly requiring barium enema, other studies or procedures, general risk of anesthesia or sedation, risk of bowel prep but not limited to, consent obtained. Given history of polyps will proceed with follow up screening colonoscopy.
[2023-04-11] MEDS ORDERED: Lactated Ringers 1,000 ML IV ONE (09:24)
[2023-04-11] MEDS ORDERED: Lactated Ringers 1,000 ML IV SCH (09:30)
[2023-04-11] MEDS ORDERED: Xylocaine-Mpf 2% 5 Ml Vial ONE (11:18)
[2023-04-11] MEDS ORDERED: DIPRIVAN 200 MG/20 ML IV ONE ×2 (11:18→11:40)
[2023-04-11] MEDS ORDERED: Versed 2 MG/2 ML Injection ONE (11:18)
[2023-04-11 12:21] VITALS: BP 117/80; PULSE 71; O2SAT 100
--- NOTE | 2023-04-11 13:15 | OP ---
SURGERY DATE/TIME: 04/11/2023 1121 PREOPERATIVE DIAGNOSIS: History of polys, need for follow up screening colonoscopy. POSTOPERATIVE DIAGNOSES: 1) Transverse colon polyp. 2) Small early polyp versus hyperplastic lesion in the rectum. 3) Fair bowel prep. 4) ASA Class III. 5) Withdrawal time approximately nine minutes. PROCEDURES: 1) Colonoscopy to cecum. 2) Hot biopsy polypectomy transverse colon polyp. 3) Hot biopsy polypectomy in piecemeal fashion. 4) Hot biopsy polypectomy small early polyp versus hyperplastic lesion in rectum. SURGEON: Dr. Dameon Becerra. ASSISSTANT: Doreen Leon, Medical Student III. ANESTHESIA: MAC. ESTIMATED BLOOD LOSS: Minimal. INDICATIONS: As noted above. Risks and benefits explained in detail but not limited to and consent obtained. DESCRIPTION OF PROCEDURE AND FINDINGS: The patient is taken to the endoscopy room. MAC anesthesia induced. After official time out and no disagreement with planned procedure, digital rectal exam did not reveal any rectal masses. Video colonoscope inserted and passed up through the slightly tortuous sigmoid, descending, transverse and ascending colon. With external pressure per the staff, the scope was passed around to the cecum. Appendiceal orifice and valve well visualized and photo documented. Prep overall was fair with a lot of liquidy semisolid stool suctioned irrigated out as clear as possible just limiting the exam for very small lesions. The scope is slowly and carefully withdrawn over the next nine minutes. A 3 mm polyp in the transverse colon removed with hot biopsy polypectomy in piecemeal fashion in two pieces and appeared to be removed and it is sent off for pathology. The scope carefully pulled back to the left colon. Back towards the rectum, upper rectum, small early polyp versus hyperplastic lesion removed with hot biopsy polypectomy. Good hemostasis noted. No signs of any large polyps, masses or obstructing lesions. There was no family to discuss the findings with. I will see her back in the office next week to go over the results.
== END 2023-04-11 12:30 | disposition home or self-care (01) ==
LOC: SDC 08:53
PROVIDERS: ATTEND Surgery
DX: Z12.11 Encounter for screening for malignant neoplasm of colon (principal); Z09 Encounter for follow-up examination after completed treatment for conditions other than malignant neoplasm; Z86.010 Personal history of colon polyps; D12.3 Benign neoplasm of transverse colon; K62.1 Rectal polyp
CPT/HCPCS: J2250; J2704

== ENCOUNTER 2023-11-16 08:54 | Day surgery (SDC) | payer BC ==
[2023-11-16] MEDS ORDERED: BUPIVACAINE 0.5% VIAL IJ ONE (08:55)
[2023-11-16] MEDS ORDERED: DIPRIVAN 200 MG/20 ML IV ONE (10:16)
[2023-11-16] MEDS ORDERED: Xylocaine-Mpf 2% 5 Ml Vial ONE (10:19)
[2023-11-16] MEDS ORDERED: Lactated Ringers 1,000 ML IV ONE (11:18)
--- NOTE | 2023-11-16 12:19 | XRAY ---
Indication: Ganglion imar nerve block. Intraoperative fluoroscopy provided for 16 seconds. Single lateral digital spot image submitted for interpretation demonstrates posterior needle tip projecting just anterior to coccyx. Small amount of contrast injected for needle tip placement. Correlate with intraoperative findings/report.
--- NOTE | 2023-11-16 12:21 | XRAY ---
16 seconds of fluoroscopy was used in surgery for a ganglion impar nerve block.
== END 2023-11-16 10:42 | disposition home or self-care (01) ==
LOC: SDC-PAIN 08:54
PROVIDERS: ATTEND Psychiatry & Neurology Pain Medicine
DX: M53.3 Sacrococcygeal disorders, not elsewhere classified (principal)
CPT/HCPCS: 64520; 72220; 77002; J2704; Q9966

== ENCOUNTER 2023-11-19 07:57 | Emergency (ER) | payer BC ==
[2023-11-19] MEDS ORDERED: TORAdol 30 mg Injection IM ONE (08:06)
[2023-11-19] MEDS ORDERED: solu-CORTEF 250MG IV ONE (08:08)
[2023-11-19] MEDS ORDERED: TORAdol 30 mg Injection ONE (08:11)
[2023-11-19] MEDS ORDERED: solu-CORTEF 250MG ONE (08:11)
[2023-11-19 08:13] VITALS: RESP 16; TEMP 97.8
--- NOTE | 2023-11-19 08:18 | ERPHSYRPT ---
- History of Present Illness Time Seen by Provider: 11/19/23 08:13 Source: patient Exam Limitations: no limitations Physician History: Patient is 58-year-old female with significant past medical history of hypertension chronic degenerative disc disease of the lumbosacral spine for which patient has been undergoing paravertebral injection. Patient recently has a ganglionic cyst in the sacral area for which patient underwent injection treatment 3 days ago. Today morning she woke up with pain in that area with some swelling and localized area of the injection. She has a difficulty initiating and pain radiates to both side of the inner thigh area. She denies any bleeding headache nausea or vomiting. She denies any bleeding from the localized site where injection was given. Timing/Duration: today Quality: burning Back Pain Location: coccyx, paraspinous muscles Back Pain Radiation: buttocks Modifying Factors: Improves With: nothing Associated Symptoms: denies symptoms Allergies/Adverse Reactions: No Known Drug Allergies Allergy (Verified 11/19/23 08:04) Home Medications: Cetirizine HCl [Zyrtec] 10 mg PO DAILY 03/15/23 [History] Hydrochlorothiazide 25 mg [hydroDIURIL 25 MG] 25 mg PO DAILY 03/15/23 [History] Montelukast Sodium 10 mg [Singulair 10 MG] 10 mg PO DAILY 03/15/23 [History] Bupropion HCl 150 mg Sr [Wellbutrin SR 150 MG] 150 mg PO DAILY 11/19/23 [History] Ezetimibe 10 mg [Zetia 10 MG] 10 mg PO DAILY 11/19/23 [History] Oxycodone HCl/Acetaminophen [Oxycodone-Acetaminophen 5-325] 1 tab PO Q8HPRN PRN 11/19/23 [History] Rizatriptan Benzoate [Rizatriptan] 1 tab PO DAILY PRN 11/19/23 [History] Topiramate 100 mg PO BID 11/19/23 [History] Trazodone HCl 100 mg PO HS 11/19/23 [History] Hx Tetanus, Diphtheria Vaccination/Date Given: Yes Hx Influenza Vaccination/Date Given: Yes Travel Risk - Vaccine Status Have you recieved a Covid-19 vaccination: No - Review of Systems Constitutional: No Symptoms Eyes: No Symptoms Ears, Nose, & Throat: No Symptoms Respiratory: No Symptoms Cardiac: No Symptoms Abdominal/Gastrointestinal: No Symptoms Genitourinary Symptoms: No Symptoms Musculoskeletal: No Symptoms Skin: Induration (sacral area of injection) Neurological: No Symptoms Psychological: No Symptoms - Past Medical History Pertinent Past Medical History: Yes Neurological History: Migraines, TIA ENT History: No Pertinent History Cardiac History: High Cholesterol, Hypertension Respiratory History: Other Endocrine Medical History: Hypothyroidism Musculoskeletal History: Osteoarthritis GI Medical History: GERD History: No Pertinent History Psycho-Social History: Depression Female Reproductive Disorders: No Pertinent History Other Medical History: Former smoker. quit in 1997. Neck spine and joint problems, - Past Surgical History Past Surgical History: Yes Neuro Surgical History: No Pertinent History Cardiac: Cardiac Catheterization Respiratory: No Pertinent History Gastrointestinal: Cholecystectomy Genitourinary: No Pertinent History Musculoskeletal: Orthopedic Surgery Female Surgical History: No Pertinent History Other Surgical History: Back surgeries x 3. - Social History Smoking Status: Former smoker Exposure to second hand smoke: No Drug Use: none Patient Lives Alone: No Significant Family History: no pertinent family hx - Physical Exam General Appearance: no apparent distress Eye Exam: PERRL/EOMI Ears, Nose, Throat Exam: normal ENT inspection Neck Exam: normal inspection Respiratory Exam: normal breath sounds Cardiovascular Exam: regular rate/rhythm Gastrointestinal Exam: soft Back Exam: normal inspection, other (localized swelling around sacrum area) Extremity Exam: normal inspection - Course Nursing assessment & vital signs reviewed: Yes Ordered Tests: Medication Summary Discontinued Medications Generic Name Dose Route Start Last Admin Trade Name Freq PRN Reason Stop Dose Admin Hydrocortisone Sodium Succinate 250 mg 11/19/23 08:08 Hydrocortisone Sod Succinate 250 Mg/Vial Vial IV 11/19/23 08:09 ONCE ONE Ketorolac Tromethamine 60 mg 11/19/23 08:06 Ketorolac Tromethamine 30 Mg/Ml Inj IM 11/19/23 08:07 STAT ONE - Progress Progress: improved, pain not gone completely Counseled pt/family regarding: diagnosis, need for follow-up Medical Desision Making - Diagnostic Testing Diagnostic test were ordered, analyzed, and reviewed by me: No - Risk of complications Minimal Risk: Minimal risk of morbidity - Departure Departure Disposition: Home Clinical Impression: Sacral back pain Sacral bruising Qualifiers: Encounter type: initial encounter Qualified Code(s): S30.0XXA - Contusion of lower back and pelvis, initial encounter Condition: Stable Critical Care Time: No Referrals: DAQUAN PINEDO MD [Primary Care Provider] - Follow up/PCP as directed Instructions: Low Back Pain (DC) Additional Instructions: Discharge/Care Plan ALEXYS CAMERON was seen on 11/19/23 in the Emergency Room. The patient was counseled regarding Diagnosis,Lab results, Imaging studies, need for follow up and when to return to the Emergency Room. Prescriptions given: Discharge Note I have spoken with the patient and/or caregivers. I have explained the patient's condition, diagnosis and treatment plan based on the information available to me at this time. I have answered the patient's and/or caregiver's questions and addressed any concerns. The patient and/or caregivers have as good understanding of the patient's diagnosis, condition and treatment plan as can be expected at this point. The vital signs have been stable. The patient's condition is stable and appropriate for discharge from the emergency department. The patient will pursue further outpatient evaluation with the primary care physician or other designated or consulting physician as outlined in the discharge instructions. The patient and/or caregivers are agreeable to this plan of care and follow-up instructions have been explained in detail. The patient and/or caregivers have received these instruction. The patient/and or caregivers are aware that any significant change in condition or worsening of symptoms should prompt an immediate return to this or the closest emergency department or call 911. ALEXYS CAMERON was seen on 11/19/23 n the Emergency Room. At that time you were treated for an emergent condition, during your visit Laboratory, Radiology and/or other procedures may have been ordered. It is very important that you follow-up with your Primary Care Physician DAQUAN PINEDO within the next 24-48 hours to review your Emergency Room visit and the final results of testing that was ordered. Some test results such as Urine Cultures, Blood Cultures, and other cultures if ordered will not be finalized for 24-48 hours. If you do not have a Primary Care Provider please call the medical records department at [phone] ext [phone] to obtain a copy of your results or you may sign into our patient portal to obtain these results by visiting us @ [email or web address] and completing the following steps: 1. Click on the Patient Portal link 2. Click the Patient Self Enrollment Link to complete the enrollment form and entering your 3. Once the enrollment form is completed you will receive an email with a temporary ID and password at the email address you provided. 4. Next choose a user name and password. Your user name must be at least 4 characters long and your password must be at least 4 characters long. 5. Choose a security question from the list and provide your answer to the question. If you already have signed into the Health Portal you may access your Health Care Information 20/06 by the following steps: 1. Login to our website @ [email or web address] 2. Enter your original user name and password. FAQS The [facility] Health Portal is an online tool that contains your Lab Results, Radiology Reports, Visit History, Discharge Instructions and Health Summary Lab and Radiology Results will not be available for 72 hours on the portal. The Portal is a secure site, passwords are encryted and URLs are re-written so they cannot be copied and pasted. You and authorized family members are the only ones who can access your Portal. Also there is a timeout feature that protects your information if you leave the Portal page open. If you have technical difficulty please use the Contact Us link on the page this will allow you to submit any questions you have regarding the Portal or you may contact the Medical Record Department at [phone] ext [phone].
[2023-11-19 08:46] VITALS: BP 101/79; PULSE 86; O2SAT 98
== END 2023-11-19 08:46 | disposition home or self-care (01) ==
LOC: ED 07:57
DX: M53.3 Sacrococcygeal disorders, not elsewhere classified (principal); S30.0XXA Contusion of lower back and pelvis, initial encounter; I10 Essential (primary) hypertension; E78.5 Hyperlipidemia, unspecified; Z79.891 Long term (current) use of opiate analgesic; Z79.899 Other long term (current) drug therapy; Z28.310 Unvaccinated for COVID-19
CPT/HCPCS: 96372; 99283; J1720; J1885

== ENCOUNTER 2023-11-22 09:39 | Emergency (ER) | payer BC ==
--- NOTE | 2023-11-22 09:51 | ERPHSYRPT ---
- History of Present Illness Time Seen by Provider: 11/22/23 09:51 Source: patient Exam Limitations: no limitations Physician History: This is a 58-year-old white female patient of Dr. Pinedo who presents to the emergency department with significant pain in her tailbone described as a pressure and burning sensation. She has never had this level of pain/discomfort in the past following a fluoroscopic injection of this site. Her most recent fluoroscopic injection of the sacrum and coccyx was on 11/16/[address] Powell. The pain is described above prompted the patient to come to our emergency department on 11/19/2023. She was given an injection of steroid and outpatient prescription for NSAIDs. Patient is on oxycodone. Her oxycodone is not helping this type of pain. She did receive a tapering prescription by nurse practitioner as an outpatient and she took that dose this morning. She has 2 more doses of the tapering steroids. Patient states that she did not take her narcotic pain medicine today. Patient has multiple medical problems including hypertension, degenerative disc disease of the lumbosacral spine, migraine headaches, TIAs, hyperlipidemia, hypothyroidism, gastroesophageal reflux disease and depression. Timing/Duration: day(s) (6) Method of Injury: other (No trauma or fall. However patient did undergo the above-stated injection procedure on 11/16/2023) Quality: burning, other (Pressure in the sacral coccygeal region) Back Pain Location: coccyx Back Pain Radiation: upper legs (Left lateral thigh) Severity of Pain-Max: moderate Severity of Pain-Current: moderate Modifying Factors: Improves With: movement, other (Hurts to lay flat in a supine position) Associated Symptoms: other (Sacrococcygeal pain), No fever, No chills, No urinary incontinence, No loss of bowel control, No constipation, No problems urinating, No numbness in legs/feet Previous symptoms: same symptoms as today, recently seen, recently treated Allergies/Adverse Reactions: No Known Drug Allergies Allergy (Verified 11/22/23 09:43) Home Medications: Cetirizine HCl [Zyrtec] 10 mg PO DAILY 03/15/23 [History] Hydrochlorothiazide 25 mg [hydroDIURIL 25 MG] 25 mg PO DAILY 03/15/23 [History] Montelukast Sodium 10 mg [Singulair 10 MG] 10 mg PO DAILY 03/15/23 [History] Bupropion HCl 150 mg Sr [Wellbutrin SR 150 MG] 150 mg PO DAILY 11/19/23 [History] Ezetimibe 10 mg [Zetia 10 MG] 10 mg PO DAILY 11/19/23 [History] Oxycodone HCl/Acetaminophen [Oxycodone-Acetaminophen 5-325] 1 tab PO Q8HPRN PRN 11/19/23 [History] Rizatriptan Benzoate [Rizatriptan] 1 tab PO DAILY PRN 11/19/23 [History] Topiramate 100 mg PO BID 11/19/23 [History] Trazodone HCl 100 mg PO HS 11/19/23 [History] Hx Tetanus, Diphtheria Vaccination/Date Given: Yes Hx Influenza Vaccination/Date Given: Yes Travel Risk - International Travel Have you traveled outside of the country in past 3 weeks: No - Coronavirus Screening Are you exhibiting any of the following symptoms?: No Close contact with a COVID-19 positive Pt in past 14-21 Days: No - Vaccine Status Have you recieved a Covid-19 vaccination: No - Review of Systems Constitutional: No Symptoms Eyes: No Symptoms Ears, Nose, & Throat: No Symptoms Respiratory: No Symptoms Cardiac: No Symptoms Abdominal/Gastrointestinal: No Symptoms Genitourinary Symptoms: No Symptoms Musculoskeletal: Back Pain (Pain in the sacral and coccygeal region) Skin: No Symptoms Neurological: No Symptoms Psychological: No Symptoms Endocrine: No Symptoms Hematologic/Lymphatic: No Symptoms Immunological/Allergic: No Symptoms All Other Systems: Reviewed and Negative - Past Medical History Pertinent Past Medical History: Yes Neurological History: Migraines, TIA ENT History: No Pertinent History Cardiac History: High Cholesterol, Hypertension Respiratory History: Other Endocrine Medical History: Hypothyroidism Musculoskeletal History: Osteoarthritis GI Medical History: GERD History: No Pertinent History Psycho-Social History: Depression Female Reproductive Disorders: No Pertinent History Other Medical History: Former smoker. quit in 1997. Neck spine and joint problems, - Past Surgical History Past Surgical History: Yes Neuro Surgical History: No Pertinent History Cardiac: Cardiac Catheterization Respiratory: No Pertinent History Gastrointestinal: Cholecystectomy Genitourinary: No Pertinent History Musculoskeletal: Orthopedic Surgery Female Surgical History: No Pertinent History Other Surgical History: Back surgeries x 3. - Social History Smoking Status: Former smoker Exposure to second hand smoke: No Drug Use: none Patient Lives Alone: No Significant Family History: no pertinent family hx - Nursing Vital Signs Nursing Vital Signs: Initial Vital Signs Temperature 97.6 F 11/22/23 09:44 Pulse Rate 84 11/22/23 09:44 Respiratory Rate 18 11/22/23 09:44 Blood Pressure 116/75 11/22/23 09:44 O2 Sat by Pulse Oximetry 99 11/22/23 09:44 Pain Scale Pain Intensity 5 - Physical Exam General Appearance: mild distress, alert, anxiety Eye Exam: PERRL/EOMI, eyes nml inspection Ears, Nose, Throat Exam: normal ENT inspection, moist mucous membranes Neck Exam: normal inspection, non-tender, supple, full range of motion Respiratory Exam: airway intact, No chest tenderness, No respiratory distress Gastrointestinal Exam: No tenderness Pelvic Exam: not done Rectal Exam: not done Back Exam: decreased range of motion, other (Swelling at the injection site without evidence of redness or cellulitis.) Extremity Exam: normal inspection, normal range of motion, pelvis stable Neurologic Exam: alert, oriented x 3, cooperative, 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 tested, normal mood/affect, nml cerebellar function, sensation nml, other Skin Exam: normal color, warm, dry Lymphatic Exam: No adenopathy SpO2 Interpretation: normal O2 Delivery: Room Air - Course Nursing assessment & vital signs reviewed: Yes Ordered Tests: Active Orders 24 hr Category Date Time Status PELVIS WITHOUT CONTRAST [CT] Stat Exams 11/22/23 10:08 Completed Medication Summary Discontinued Medications Generic Name Dose Route Start Last Admin Trade Name Shanique PRN Reason Stop Dose Admin Methylprednisolone Sodium 0 mg 11/22/23 10:04 11/22/23 10:14 Succinate 80 mg/ Sterile Water IM 11/22/23 10:05 80 mg 2 ml STAT ONE Administration Hydromorphone HCl 1 mg 11/22/23 10:05 11/22/23 10:23 Hydromorphone 1 Mg/1ml Inj IM 11/22/23 10:06 1 mg STAT ONE Administration Hydromorphone HCl Confirm 11/22/23 10:11 Hydromorphone 1 Mg/1ml Inj Administered 11/22/23 10:12 Dose 1 mg .ROUTE .STK-MED ONE Methylprednisolone Sodium Succinate Confirm 11/22/23 10:11 Methylprednisolone Sod Suc 40m 40 Mg/Ml Vial Administered 11/22/23 10:12 Dose 40 mg .ROUTE .STK-MED ONE Methylprednisolone Sodium Succinate Confirm 11/22/23 10:12 Methylprednisolone Sod Suc 40m 40 Mg/Ml Vial Administered 11/22/23 10:13 Dose 40 mg .ROUTE .STK-MED ONE Ondansetron HCl 4 mg 11/22/23 10:04 11/22/23 10:13 Zofran 4 Mg/Udtablet Orally Disintegrating PO 11/22/23 10:05 4 mg STAT ONE Administration Ondansetron HCl Confirm 11/22/23 10:11 Zofran 4 Mg/Udtablet Orally Disintegrating Administered 11/22/23 10:12 Dose 4 mg .ROUTE .STK-MED ONE Orphenadrine Citrate 60 mg 11/22/23 10:05 11/22/23 10:24 Orphenadrine Citrate 60 Mg/2 Ml Vial IM 11/22/23 10:06 60 mg STAT ONE Administration Orphenadrine Citrate Confirm 11/22/23 10:24 Orphenadrine Citrate 60 Mg/2 Ml Vial Administered 11/22/23 10:25 Dose 60 mg .ROUTE .STK-MED ONE Sterile Water Confirm 11/22/23 10:10 Water For Injection,Sterile 10 Ml Vial Administered 11/22/23 10:11 Dose 10 ml IJ .STK-MED ONE - Progress Progress: improved, pain not gone completely Progress Note: 11/22/23 10:14 This patient's medical issue is 1 of low to moderate complexity. Level complex in the workup performed is based on review the patient's past medical history, review of the patient's medication list, review the patient's drug allergy list, history present illness and physical findings on examination. The workup in this patient includes providing the patient with a combination of Zofran ODT, and intramuscular Dilaudid, Norflex, and Solu-Medrol. In addition, we will obtain a CT scan of the sacrum and coccygeal region. 11/22/23 11:15 CT scan of the pelvis without contrast was interpreted by the radiologist and I reviewed the impression. There is beam artifact secondary to lumbosacral j unction fusion hardware. No focal solid/cystic soft tissue mass or abnormal fluid collection. There is no acute fracture, dislocation or suspicious bony lesions present. 11/22/23 11:32 I reviewed the results of the CT scan with the patient. Patient states that her pain is much improved on the combination of medications that we provided her. Therefore, we will have her continue her Percocet 5/325 medication as prescribed and we will remotely send a prescription of steroids and orphenadrine to her pharmacy. She is to follow-up with her primary care provider and her pain specialist for further outpatient management of her chronic pain issues. Counseled pt/family regarding: diagnosis, need for follow-up, rad results Medical Desision Making - Diagnostic Testing Diagnostic test were ordered, analyzed, and reviewed by me: Yes Radiological Interpretation: Reviewed by me, Teleradiologist Report - Risk of complications The pt has a mod risk of morbidity or mortality based on: Need for prescription drug management - Departure Departure Disposition: Home Clinical Impression: Coccygeal pain, Sacral pain Condition: Stable Critical Care Time: No Referrals: DAQUAN PINEDO MD [Primary Care Provider] - Follow up/PCP as directed Additional Instructions: Continue your oxycodone medication as prescribed. Continue your remaining steroid medication as prescribed. Add your new steroid and muscle relaxant medication. Call your primary care provider and your pain specialist today, 11/22/2023, to make an appointment in the next 2 to 3 days for further evaluation and management of your outpatient pain Prescriptions: Prednisone 10 mg [Deltasone 10 mg] 10 mg PO TID #12 tablet Orphenadrine Citrate 100 mg [Norflex 100 MG Tablet] 100 mg PO BID #10 tab
[2023-11-22] MEDS ORDERED: solu-MEDROL 80 MG, Sterile H2O 10 ml 2 ML IM ONE ×2 (10:04)
[2023-11-22] MEDS ORDERED: ZOFRAN ODT 4 MG PO ONE (10:04)
[2023-11-22] MEDS ORDERED: Hydromorphone 1 mg/ml Injection IM ONE (10:05)
[2023-11-22] MEDS ORDERED: Norflex 60 MG/2 ML IM ONE (10:05)
[2023-11-22] MEDS ORDERED: Sterile H2O 10 ml IJ ONE (10:10)
[2023-11-22] MEDS ORDERED: solu-MEDROL ONE ×2 (10:11→10:12)
[2023-11-22] MEDS ORDERED: ZOFRAN ODT 4 MG ONE (10:11)
[2023-11-22] MEDS ORDERED: Hydromorphone 1 mg/ml Injection ONE (10:11)
[2023-11-22] MEDS ORDERED: Norflex 60 MG/2 ML ONE (10:24)
--- NOTE | 2023-11-22 11:10 | XRAY ---
Indication: Sacral/coccygeal pain. Status post ganglion impar injection November 16, 2023. Multiple contiguous axial images obtained through the pelvis with special attention to the osseous structures. Sagittal and coronal reformatted images obtained. Comparison: None Posterior lumbosacral junction fusion hardware and intervertebral spacers produces beam artifact. No acute fracture, dislocation, or suspicious bony lesions. Visualized noncontrasted soft tissues demonstrates minimal arteriosclerotic calcifications. No focal solid/cystic soft tissue mass or abnormal fluid collection. Previous hysterectomy. No pathologic lymphadenopathy. Impression: Beam artifact from lumbosacral junction fusion hardware and minimal arteriosclerotic calcifications. Remaining CT pelvis without contrast exam is normal.
[2023-11-22 11:13] VITALS: BP 130/70; PULSE 80; RESP 20; TEMP 97.2; O2SAT 95
== END 2023-11-22 11:44 | disposition home or self-care (01) ==
LOC: ED 09:39
DX: M53.3 Sacrococcygeal disorders, not elsewhere classified (principal); I10 Essential (primary) hypertension; E78.5 Hyperlipidemia, unspecified; Z79.891 Long term (current) use of opiate analgesic; Z79.52 Long term (current) use of systemic steroids; Z79.899 Other long term (current) drug therapy; Z28.310 Unvaccinated for COVID-19
CPT/HCPCS: 72192; 96372; 99283; J1170; J2360; J2920; J2930; Q0162

== ENCOUNTER 2025-01-10 09:09 | Day surgery (SDC) | payer OTHER ==
[2025-01-10] MEDS ORDERED: Sensorcaine 0.25% 10 ML IJ ONE (09:10)
[2025-01-10] MEDS ORDERED: LIDOCAINE HCL 1% AMPUL 5 ML IJ ONE (09:10)
[2025-01-10] MEDS ORDERED: Lactated Ringers 500 ML IV ONE (09:14)
[2025-01-10] MEDS ORDERED: propofoL IV ONE (10:56)
--- NOTE | 2025-01-10 11:58 | XRAY ---
Indication: Left lumbar sympathetic nerve block. Intraoperative fluoroscopy provided for 39 seconds. 7 digital spot image submitted for interpretation demonstrates left posterior needle tip projecting just anterior to inferior L2 vertebral body. Small amount of contrast injected for needle tip placement. Correlate with intraoperative findings/report.
--- NOTE | 2025-01-10 13:12 | XRAY ---
39 seconds of fluoroscopy was used in surgery for a left lumbar sympathetic nerve block.
== END 2025-01-10 11:43 | disposition home or self-care (01) ==
LOC: SDC-PAIN 09:09
PROVIDERS: ATTEND Psychiatry & Neurology Pain Medicine
DX: G90.522 Complex regional pain syndrome I of left lower limb (principal)
CPT/HCPCS: 64520; 72100; 77002; 77003; J2704; Q9966

== ENCOUNTER 2025-11-07 09:40 | Day surgery (SDC) | payer OTHER ==
[2025-11-07] MEDS ORDERED: LIDOCAINE HCL 1% 50 MG/5 ML VL IJ ONE (09:41)
[2025-11-07] MEDS ORDERED: BUPIVACAINE 0.5% VIAL IJ ONE (09:41)
[2025-11-07] MEDS ORDERED: propofoL IV ONE (12:22)
[2025-11-07] MEDS ORDERED: Lactated Ringers 1,000 ML IV ONE (12:47)
--- NOTE | 2025-11-07 13:52 | XRAY ---
Indication: Ganglion impar nerve block. Intraoperative fluoroscopy provided for 10 seconds. 2 digital spot image submitted for interpretation demonstrates posterior needle tip projecting just anterior to sacrococcygeal junction. Small amount of contrast injected for needle tip placement. Correlate with intraoperative findings/report.
--- NOTE | 2025-11-07 14:06 | XRAY ---
10 seconds of fluoroscopy was used in surgery for a ganglion impar nerve block.
== END 2025-11-07 12:45 | disposition home or self-care (01) ==
LOC: SDC-PAIN 09:40
PROVIDERS: ATTEND Psychiatry & Neurology Pain Medicine
DX: M53.3 Sacrococcygeal disorders, not elsewhere classified (principal)